=== PATIENT | male | born 1995 | race Caucasian/White ===

== ENCOUNTER 2024-08-31 18:23 | Emergency (ER) | payer OTHER ==
[~2024-08-31] VITALS: Ht 182.9 cm; Wt 126.0 kg
[2024-08-31] MEDS: proparacaine 0.5% ophthalmic drops 15ml LEFTEYE ONE (21:21)
[2024-08-31] MEDS: proparacaine 0.5% ophthalmic drops 15ml EACHEYE ONE (21:21)
[2024-08-31 21:50] VITALS: BP 132/70; PULSE 85; RESP 18; TEMP 98.9; O2SAT 98
== END 2024-08-31 21:51 | disposition home or self-care (01) ==
LOC: ER 18:24
DX: T26.62XA Corrosion of cornea and conjunctival sac, left eye, initial encounter (principal); Y99.0 Civilian activity done for income or pay
CPT/HCPCS: 99282